=== PATIENT | male | born 1980 | race Caucasian/White ===

== ENCOUNTER 2022-10-08 19:30 | Emergency (ER) | payer OTHER ==
[2022-10-08] MEDS ORDERED: Ibuprofen 800 MG TAB ONE (20:06)
== END 2022-10-08 20:31 | disposition home or self-care (01) ==
LOC: ERS 19:30
DX: S93.491A Sprain of other ligament of right ankle, initial encounter (principal); X50.0XXA Overexertion from strenuous movement or load, initial encounter; Y99.0 Civilian activity done for income or pay